=== PATIENT | male | born 1955 | race Caucasian/White ===

== ENCOUNTER 2017-07-18 19:12 | Emergency (ER) | payer SELFPAY ==
[~2017-07-18] VITALS: Ht 180.3 cm; Wt 97.7 kg
[2017-07-18] MEDS ORDERED: FLEXERIL10 MG PO (20:36)
[2017-07-18 20:49] VITALS: BP 155/96
== END 2017-07-18 20:58 | disposition home or self-care (01) ==
LOC: EME 19:12
DX: S86.811A Strain of other muscle(s) and tendon(s) at lower leg level, right leg, initial encounter (principal); X50.9XXA Other and unspecified overexertion or strenuous movements or postures, initial encounter; Y93.89 Activity, other specified; Y99.0 Civilian activity done for income or pay
CPT/HCPCS: 73590; 99281; 99284